=== PATIENT | female | born 1950 | race Hispanic/Latino ===

== ENCOUNTER 2022-11-19 12:06 | Inpatient (IN) | payer OTHER, SELFPAY ==
--- OUTSIDE RECORDS SUMMARY | 2022-11-19 12:09 | XMS REPORT | Continuity of Care Document ---
:1950 Author Organization [facility] t Address [address] [place] [address] [place] [address] Care Team Providers Name Role Phone PCP, PATIENT DOES NOT HAVE A Primary Care Physician UnavailCAROL Ackerman Attending Clinician Unavailable TAVIA METZGER Attending Clinician Unavailable DEL OCONNOR Attending Clinician Unavailable LAB90 Attending Clinician Unavailable RADHA SANDOVAL Attending Clinician Unavailable Radha Sandoval MD Attending Clinician RADHA SANDOVAL Admitting Clinician Unavailable Payers Payer Name Policy Type Policy Number Effective Date Expiration Date [facility] [id number] 2022 00:00:00 MEDICARE PART A [id number] 2018 \T\ B 00:00:00 Problems Condition Condition Condition Status Onset Resolution Last Treating Co mments Source Name Details Category Date Date Treatment Clinician Date Morbid Morbid Disease Active Annabel obesity obesity 818 Seybold 00:00: - 00 Externa l Mild major Mild major Disease Active K grzegorz depression depression 818 Se ybold 00:00: - 00 Externa l Peripheral Peripheral Disease Active K grzegorz vascular vascular 818 Seybol d disease of disease of 00:00: - extremity extremity 00 Exte rna l URIAH URIAH Disease Active Annabel (generaliz (generaliz 8-18 Se ybold ed anxiety ed anxiety 00:00: - disorder) disorder) 00 Exte rna - Not - Not l Controlled Controlled Hypothyroi Hypothyroi Disease Active Juan lantigua dism dism 11-07 Seybold 00:00: - 00 Externa l Hyperlipid Hyperlipid Disease Active Juan lantigua emia emia 11-07 Seybold 00:00: - 00 Externa l Primary Primary Disease Active Annabel hypertensi hypertensi 11-07 Se ybold on - Not on - Not 00:00: - Controlled Controlled 00 Ex terna l Allergies, Adverse Reactions, Alerts Allergy Allergy Status Severity Reaction(s) Onset Inactive Treating Comm ents Source Name Type Date Date Clinician NO KNOWN Drug [facility] Social History Social Habit Start Date Stop Date Quantity Comments Source Gender identity Annabel ybold - External Sexual orientation Annabel Rosalesjudyold - External Tobacco use and 2022-11-07 2022-11-07 Smokeless Annabel Se ybold - exposure 00:00:00 00:00:00 tobacco non-user External Alcohol intake 2022-11-07 2022-11-07 Ex-drinker Annabelalina Billings bold - 00:00:00 00:00:00 (finding) External History of Social 2022-11-07 2022-11-07 Annabelalina Ellisold - function 00:00:00 00:00:00 External Exposure to 2022-06-08 2022-06-18 Not sure University SARS-CoV-2 (event) 00:00:00 19:19:00 [facility] Sex Assigned At [birth year] Annabel Rosales ybold - 00:00:00 00:00:00 External Smoking Status Start Date Stop Date Source Tobacco smoking consumption Univ [facility] Never smoked tobacco Annabel Caleb old - External Medications Ordered Filled Start Stop Current Ordering Indication Dosage Frequency Signature Comments Components Source Medication Medication Date Date Medication? Clinician (SIG) Name Name Atorvastati 2022- No 40mg Take 1 Silver sey n Calcium 11-07 tablet (40 Sey bold 40 MG oral 09:13: 00:00 mg total) - Tablet 55 :00 by mouth Externa daily l Amlodipine 2022- No 10mg Take 1 Julia ey Besylate 10 11-07 tablet (10 S eybold MG oral 09:13: 00:00 mg total) - Tablet 55 :00 by mouth Externa daily l LISINOPRIL- 2022-0 3- No 1{tbl} Take 1 K elsey HCTZ 8-18 08-18 tablet by Seybold 20-12.5 MG 09:13: 00:00 mouth - oral Tablet 55 :00 daily Externa l Amlodipine 2022-0 Yes [id number] 10mg Take 1 K elsey Besylate 10 8-18 tablet (10 Se ybold MG oral 00:00: mg total) - Tablet 00 by mouth Externa daily l Atorvastati 2022-0 Yes [id number] 40mg Take 1 Annabel n Calcium 8-18 tablet (40 Seyb old 40 MG oral 00:00: mg total) - Tablet 00 by mouth Externa daily l Levothyroxi 2022-0 Yes [id number] 88ug Take 1 Annabel ne Sodium 8-18 tablet (88 Seyb old 88 MCG oral 00:00: mcg total) - Tablet 00 by mouth Externa daily l LISINOPRIL- 2022-0 Yes [id number] 1{tbl} Take 1 Annabel HCTZ 8-18 tablet by Seybold 20-12.5 MG 00:00: mouth - oral Tablet 00 daily Externa l Sertraline 2022-0 Yes [id number] 25mg Take 1 K elsey HCl 25 MG 8-18 tablet (25 Seyb old oral Tablet 00:00: mg total) - 00 by mouth Externa daily l Celecoxib 2022-0 Yes [id number] 200mg Take 1 Annabel (CeleBREX) 8-18 capsule Seybol d 200 MG oral 00:00: (200 mg - Capsule 00 total) by Externa mouth 2 l times daily hydrOXYzine 2022-0 Yes [id number] Ke lsey HCl 50 MG 7-29 Seybold oral Tablet 00:00: - 00 Externa l Levothyroxi 2022-0 2022- No Kelse y ne Sodium 7-25 08-18 Seybold 88 MCG oral 00:00: 00:00 - Tablet 00 :00 Externa l HYDROcodone 2022-0 2022- No 1{tbl} 1 tablet, Univers -acetaminop 3-30 03-30 Oral, ONCE i ty of hen (NORCO) 01:45: 01:18 NOW, 1 [place] as 10-325 mg 00 :00 dose, On Medica l tablet 1 Wed Branch tablet 06/18/22 at 2044, Routine acetaminoph Yes [id number] 1{tbl} Take 1 Un mickey en-codeine 3-29 tablet by ity of (TYLENOL-CO 00:00: mouth [place] DEINE #3) 00 every 4 Medical 300-30 mg (four) Branch tablet hours as needed for Pain (scale 7-10). Indication s: acute pain Acetaminoph 2022- No 1{tbl} Q4H Take 1 K elsey en-Codeine 3-29 - tablet by Alina bold 300-30 MG 00:00: 00:00 mouth - oral Tablet 00 :00 every 4 Exter na hours as l needed Vital Signs Vital Name Observation Time Observation Value Comments Source Systolic blood 2022-11-07 13:41:00 180 mm[Hg] Annabel Ellisold - pressure External Diastolic blood 2022-11-07 13:41:00 80 mm[Hg] Rasheeda Hernandez - pressure External Heart rate 2022-11-07 13:41:00 61 /min Annabel shannonboamrik - External Body temperature 2022-11-07 13:41:00 36.61 Idalia Julia Ellisold - External Respiratory rate 2022-11-07 13:41:00 15 /min Julia Ellisold - External Body height 2022-11-07 13:41:00 154.9 cm Annabel shannonboamrik - External Body weight 2022-11-07 13:41:00 93.441 kg Annabel price - External BMI 2022-11-07 13:41:00 38.92 kg/m2 Annabel shannonboamrik - External Oxygen saturation in 2022-11-07 13:41:00 99 /min Annabel Hernandez - Arterial blood by External Pulse oximetry Systolic blood 2022-06-19 00:22:00 147 mm[Hg] [facility] Diastolic blood 2022-06-19 00:22:00 84 mm[Hg] [facility] Heart rate 2022-06-19 00:22:00 71 /min [facility] Body temperature 2022-06-19 00:22:00 37.22 Idalia [facility] Respiratory rate 2022-06-19 00:22:00 16 /min [facility] Body height 2022-06-19 00:22:00 154.9 cm [facility] Body weight 2022-06-19 00:22:00 81.647 kg [facility] BMI 2022-06-19 00:22:00 34.01 kg/m2 [facility] Oxygen saturation in 2022-06-19 00:22:00 99 /min [facility] Arterial blood by [facility] Pulse oximetry Branch Procedures Procedure Date / Time Performed Performing Clinician Geri MONSON 2022-11-07 15:09:29 Tavia Metzger ld - External XR FEMUR 2 VW RIGHT 2022-06-19 01:09:00 Radha Sandoval [facility] XR KNEE 3 VW RIGHT 2022-06-19 01:09:00 Radha Sandoval [facility] CONSENT/REFUSAL FOR 2022-06-19 00:14:20 Doctor Unassigned, No [facility] DIAGNOSIS AND Name [facility] TREATMENT NOTICE OF PRIVACY 2022-06-19 00:13:40 Doctor Unassigned, No [facility] PRACTICES Name [facility] Encounters Start End Encounter Admission Attending Care Care Encounter Source Date/Time Date/Time Type Type Clinicians Facility Department ID 2022-12-12 2022-12-12 Outpatient ANNABEL ALCANTAR [id number] Annabel 10:00:00 10:00:00 CAROL izaguirre 2022-12-05 2022-12-05 Outpatient ANNABEL METZGER [id number] Annabel 13:30:00 13:30:00 TAVIA brock 2022-11-19 2022-11-19 Outpatient ANNABEL OCONNOR [id number] Annabel 00:00:00 00:00:00 DEL brock 2022-11-17 2022-11-17 Outpatient ANNABEL OCONNOR [id number] Annabel 00:00:00 00:00:00 DEL Ellisol delmy 2022-11-11 2022-11-11 Outpatient ANNABEL METZGER [id number] Annabel 00:00:00 00:00:00 TAVIA Seybol d 2022-11-07 2022-11-07 Outpatient LAB90 ANNABEL VERAS [id number] Annabel 10:20:00 10:20:00 Seybol d 2022-11-07 2022-11-07 Outpatient ANNABEL METZGER [id number] Annabel 09:00:00 09:00:00 TAVIA Seybol d 2022-11-07 2022-11-07 Outpatient ANNABEL VERAS [id number] Annabel 00:00:00 00:00:00 Seybol d 2022-06-18 2022-06-18 Emergency X [facility] ERT [id number] Univers 19:32:00 21:29:00 RADHA [facility] 2022-06-18 2022-06-18 Emergency [facility] [id number] Univers 19:32:00 21:29:00 [id number] [id number] [place] [address] Branch 2022-04-17 2022-04-17 Outpatient [facility] 126 Hogn 10:45:48 10:45:48 F Que Results Test Description Test Time Test Comments Results Result Comments Source [facility] 2022-11-07 15:10:00 Test Item Value Reference Range Interpretation Comme [facility] side (test See_Comment L [ Automated message] The system code = 79618-7N) which gener ated this result transmitted ref erence range: 1.40 - 0.90 NA. The reference range was not used to int erpret this result as normal/abnor mal. [facility] right side (test See_Comment P resentation Factors: code = 62907-0O) Hypertensio nExercise Modality: At RestNormal - 1. 40 - 1.00Borderline - 0.99 - 0.90Mi ld - 0.89 - 0.60Moderate - 0.59 - 0.30Severe - 0.29 - 0.00 [Au tomated message] The system Line[employer] generated this result transmit ashlie reference range: 1.40 - 0 .90 NA. The reference range was not used to interpret this result as normal/abnormal . Lab Interpretation (test Abnormal code = 65772-4) Annabel Reed, THIRD [id number] 06:50:54 Test Item Value Reference Range Interpretation Comments TSH, THIRD 2.910 UIU/ML 0.400-4.100 UNLESS OTHERWI SE GENERATION (test INDICATED, ALL TESTING code = 2821) PERFORMED [facility], [place]. [address] [place] [address] [facility] DIRECTOR: TIFFANIE TIAN M.D. IA NUMBER [id number] CAP ACCREDITATION N O. [id number] COMPREHENSIVE METABOLIC [id number] 05:26:21 Test Item Value Reference Range Interpretation Comments GLUCOSE (test code = 90 MG/DL 70-99 2216) BUN (test code = 7 MG/DL 8-23 L 2207) CREATININE (test 0.75 MG/DL 0.60-1.30 code = 2214) eGFR (2020 CKD-EPI) 86 ML/MIN/1.73 >60 (test code = 59854) CALC BUN/CREAT (test 9 RATIO 6-28 code = 2235) SODIUM (test code = 144 MEQ/L 868-441 6488) POTASSIUM (test code 3.9 MEQ/L 3.5-5.4 = 222) CHLORIDE (test code 105 MEQ/L 95-107 = 221) CARBON DIOXIDE (test 28 MEQ/L 19-31 code = 2206) CALCIUM (test code = 9.4 MG/DL 8.5-10.5 2208) PROTEIN, TOTAL (test 7.3 G/DL 6.1-8.3 code = 2229) ALBUMIN (test code = 4.3 G/DL 3.5-5.2 2200) CALC GLOBULIN (test 3.0 G/DL 1.9-3.7 code = 2240) CALC A/G RATIO (test 1.4 RATIO 1.0-2.6 code = 2234) BILIRUBIN, TOTAL 0.3 MG/DL See_Comment [Automated message] (test code = 2207) The [employer] which generated this result transmit ashlie reference range : <=1.2. The refe rence range was not u sed to interpret th is result as normal/abnormal . ALKALINE PHOSPHATASE 54 U/L 40-142 (test code = 2203) AST (test code = 21 U/L 9-40 2217) ALT (test code = 15 U/L 5-40 2218) LIPID [id number] 05:26:21 Test Item Value Reference Range Interpretation Comments CHOLESTEROL (test 163 MG/DL <200 code = 2210) TRIGLYCERIDES (test 93 MG/DL <150 code = 2232) HDL CHOLESTEROL (test 63 MG/DL >39 code = 2220) CALC LDL CHOL (test 81 MG/DL <100 NOTE: C ALCULATED LDL code = 2237) IS BASED ON URBAN-LIU METHOD WHICHINCLUDES ADJUSTABLE TRIGLYCERIDE:VL DL CHOLESTEROL RAT IO.THIS FACTOR VARIES B Y MEASURED TRIGLY CERIDE AND NON-HDLCHOL ESTEROL CONCENTRATIONS WITH INCREASED CALCU LATED LDL SEENIN HIGH ER TRIGLYCERIDE OR LOWER NON-HDL SPECIME NS. FOR MOREINFORMATION , SEE CLIENT ANNOUNCE MENT AT [email or web address] LDL/HDL 1.29 RATIO <3.22 (test code = 2237) TSH, THIRD [id number] 09:08:47 Test Item Value Reference Range Interpretation Comments TSH, THIRD GENERATION (test code 2.340 UIU/ML 0.400-4.100 = 2820) COMPREHENSIVE METABOLIC [id number] 04:24:39 Test Item Value Reference Range Interpretation Comments GLUCOSE (test code = 92 MG/DL 70-99 2216) BUN (test code = 16 MG/DL -2207) CREATININE (test 0.79 MG/DL 0.60-1.30 code = 2214) eGFR (2020 CKD-EPI) 81 ML/MIN/1.73 >60 (test code = 70251) CALC BUN/CREAT (test 20 RATIO 6-28 code = 2235) SODIUM (test code = 142 MEQ/L 716-098 0385) POTASSIUM (test code 3.9 MEQ/L 3.5-5.4 = 2227) CHLORIDE (test code 103 MEQ/L 95-107 = 2214) CARBON DIOXIDE (test 27 MEQ/L 19-31 code = 2206) CALCIUM (test code = 9.9 MG/DL 8.5-10.5 2208) PROTEIN, TOTAL (test 7.8 G/DL 6.1-8.3 code = 2229) ALBUMIN (test code = 4.6 G/DL 3.5-5.2 2200) CALC GLOBULIN (test 3.2 G/DL 1.9-3.7 code = 2240) CALC A/G RATIO (test 1.4 RATIO 1.0-2.6 code = 2234) BILIRUBIN, TOTAL 0.5 MG/DL See_Comment [Automated message] (test code = 220) The syste m which generated this result transmit ashlie reference range : <=1.2. The refe rence range was not u sed to interpret th is result as normal/abnormal . ALKALINE PHOSPHATASE 51 U/L 40-142 (test code = 2203) AST (test code = 20 U/L 9-40 2217) ALT (test code = 16 U/L 5-40 2218) LIPID [id number] 04:24:39 Test Item Value Reference Range Interpretation Comments CHOLESTEROL (test 155 MG/DL <200 code = 2210) TRIGLYCERIDES (test 68 MG/DL <150 code = 2232) HDL CHOLESTEROL (test 82 MG/DL >39 code = 2220) CALC LDL CHOL (test 59 MG/DL <100 NOTE: C ALCULATED LDL code = 2237) IS BASED ON URBAN-LIU METHOD WHICHINCLUDES ADJUSTABLE TRIGLYCERIDE:VL DL CHOLESTEROL RAT IO.THIS FACTOR VARIES B Y MEASURED TRIGLY CERIDE AND NON-HDLCHOL ESTEROL CONCENTRATIONS WITH INCREASED CALCU LATED LDL SEENIN HIGH ER TRIGLYCERIDE OR LOWER NON-HDL SPECIME NS. FOR MOREINFORMATION , SEE CLIENT ANNOUNCE MENT AT [email or web address] LDL/HDL 0.72 RATIO <3.22 UNLESS O THERWISE (test code = 223) INDICATED , ALL TESTING PERFORMED [facility], [facility]. [address] [place] [address] [facility] DIRECTOR: TIFFANIE TIAN M.D. CLIA NUMBER [id number] CAP ACCREDITATION N O. [id number] TSH, THIRD [id number] 05:58:25 Test Item Value Reference Range Interpretation Comments TSH, THIRD 2.410 UIU/ML 0.400-4.100 UNLESS OTHERWI SE GENERATION (test INDICATED, ALL TESTING code = 2821) PERFORMED [facility], [facility]. [address] [place] [id number] [facility] DIRECTOR: TIFFANIE TIAN M.D. CLIA NUMBER [id number] CAP ACCREDITATION N O. [id number]
[2022-11-19 12:38] LABS: Absolute Lymphocytes (CBC) 1.3 K/uL (0.7-4.9); Hematocrit 42.9 % (36.0-45.0); Lymphocytes % 13.2 % (15.3-44.8); MCV 82.6 fL (80-100); MPV 8.5 fL (7.6-11.3); Platelets 340 thou/uL (152-406); RBC Red Blood Cell Count 5.19 M/uL (3.86-4.86)
--- NOTE | 2022-11-19 12:47 | RAD REPORT ---
EXAM DESCRIPTION: López Single View11/19/2022 12:40 pm CLINICAL HISTORY: Chest pain COMPARISON: none FINDINGS: The lungs appear clear of acute infiltrate. The heart is normal size IMPRESSION: No acute abnormalities displayed
[2022-11-19 13:03] LABS: Magnesium 2.1 mg/dL (1.6-2.4); Potassium 2.8 mEq/L (3.5-5.1); Troponin High Sensitivity 5.7 pg/mL (<58.9)
[2022-11-19 14:00] LABS: Potassium 2.8 mEq/L (3.5-5.1)
[2022-11-19] MEDS ORDERED: POTASSIUM CL SA 10 MEQ TAB PO ONE (14:24)
--- NOTE | 2022-11-19 14:33 | EDPHYS ---
Physician Documentation [facility] Name: Deya Thomas Age: 72 yrs Sex: Female : 1950 Arrival Date: 11/19/2022 Time: 12:06 Bed 15 Private MD: ED Physician King Cordova HPI: 11/19 12:32 This 72 yrs old Female presents to ER via Ambulatory with complaints of Chest ms3 Pain. 12:32 72-year-old female with past medical history of hypertension, hypothyroidism, ms3 hypercholesterolemia presents for chest pressure that is been ongoing for 4 days located in her epigastric region. Patient denies nausea, vomiting, dizziness. Patient states her discomfort is an 8/10. Patient denies alleviating or inciting factors. Historical: - Allergies: 12:18 No Known Allergies; ap3 - Home Meds: 12:18 levothyroxine oral [Active]; Celecoxib Oral [Active]; amlodipine oral [Active]; ap3 Lisinopril Oral [Active]; - PMHx: 12:18 Hypertensive disorder; Hypothyroidism; Hypercholesterolemia; ap3 - PSHx: 12:18 section; ap3 - Immunization history:: Adult Immunizations up to date. - Social history:: Smoking status: Patient denies any tobacco usage or history of. ROS: 12:32 Constitutional: Negative for fever, and chills. Neck: Negative for injury, pain, and ms3 swelling, Respiratory: Negative for shortness of breath, cough, wheezing, and pleuritic chest pain, Abdomen/GI: Negative for abdominal pain, nausea, vomiting, diarrhea, and constipation, Back: Negative for injury and pain. 12:32 Cardiovascular: Positive for chest pain. Exam: 12:32 Constitutional: This is a well developed, well nourished patient who is awake, alert, ms3 and in no acute distress. Head/Face: Normocephalic, atraumatic. Neck: Trachea midline, no cervical lymphadenopathy. Supple, full range of motion without nuchal rigidity, or vertebral point tenderness. No Meningismus. Chest/axilla: Normal chest wall appearance and motion. Nontender with no deformity. Cardiovascular: Regular rate and rhythm with a normal S1 and S2. No gallops, murmurs, or rubs. Normal PMI, no JVD. No pulse deficits. Respiratory: Lungs have equal breath sounds bilaterally, clear to auscultation and percussion. No rales, rhonchi or wheezes noted. No increased work of breathing, no retractions or nasal flaring. Abdomen/GI: Soft, non-tender, with normal bowel sounds. No distension or tympany. No guarding or rebound. No evidence of tenderness throughout. Skin: Warm, dry with normal turgor. Normal color with no rashes, no lesions, and no evidence of cellulitis. MS/ Extremity: Pulses equal, no cyanosis. Neurovascular intact. Full, normal range of motion. 15:08 ECG was reviewed by the Attending Physician. ms3 Vital Signs: 12:16 BP 135 / 72; Pulse 81; Resp 17; Temp 98.8; Pulse Ox 99% ; Weight 92.53 kg; Pain 8/10; ap3 13:53 BP 125 / 54; Pulse 64; Pulse Ox 99% ; ll1 15:13 BP 145 / 73; Pulse 72; Resp 17; Pulse Ox 99% ; ll1 17:20 BP 141 / 71; Pulse 70; Resp 17; Pulse Ox 99% on R/A; ll1 17:59 BP 122 / 63; Pulse 68; Resp 17; Pulse Ox 99% ; ll1 19:55 BP 118 / 57; Pulse 66; Resp 17; Temp 98; Pulse Ox 100% ; rv 12:16 Pain Scale: Adult ap3 [place] Coma Score: 19:55 Eye Response: spontaneous(4). Motor Response: obeys commands(6). Verbal Response: rv oriented(5). Total: 15. MDM: 12:24 Patient medically screened. ms3 12:32 Differential diagnosis: abnormal EKG, acute myocardial infarction, coronary artery ms3 disease. 14:46 HEART Score: History: Moderately Suspicious (1), ECG: Normal (0), Age: > or = 65 years ms3 (2), Risk Factors: 1 or 2 risk factors (1), Troponin: < or = 1 x Normal Limit (0), Total Score = 4. The patient was given aspirin in the Emergency Department. Data reviewed: vital signs, nurses notes, lab test result(s), EKG, radiologic studies, and as a result, I will admit patient. Consideration of Admission/Observation Patient was admitted/placed on observation. Management of patient was discussed with the following: Hospitalist: . 14:49 Independent interpretation of the following test(s) in the Emergency Department X-Ray: ms3 My interpretation is CXR image reviewed by me does not show PNA. Care significantly affected by the following chronic conditions: Hypertension, HLD. Counseling: I had a detailed discussion with the patient and/or guardian regarding the historical points, exam findings, and any diagnostic results supporting the discharge/admit diagnosis, lab results, radiology results, the need for outpatient follow up, to return to the emergency department if symptoms worsen or persist or if there are any questions or concerns that arise at home. ED course: Discussed low sodium, low potassium, normal troponin normal EKG normal chest x-ray with patient. Discussed necessity for admission with hyponatremia of 119. Patient understands agrees with plan. All questions were answered.. 11/19 12:24 Order name: Basic Metabolic Panel; Complete Time: 13:11 ms3 11/19 12:24 Order name: CBC with Diff; Complete Time: 13:11 ms3 11/19 12:24 Order name: Magnesium; Complete Time: 13:11 ms3 11/19 12:24 Order name: Troponin HS; Complete Time: 13:11 ms3 11/19 13:05 Order name: BMP; Complete Time: 14:30 ms3 11/19 14:02 Order name: Urine Sodium Random; Complete Time: 16:20 kb 11/19 14:02 Order name: Osmolality, Serum; Complete Time: 16:20 kb 11/19 12:24 Order name: XRAY Chest (1 view); Complete Time: 13:11 ms3 11/19 12:24 Order name: EKG; Complete Time: 12:25 ms3 11/19 12:24 Order name: Cardiac monitoring; Complete Time: 12:25 ms3 11/19 12:24 Order name: EKG - Nurse/Tech; Complete Time: 12:25 ms3 11/19 12:24 Order name: IV Saline Lock; Complete Time: 13:28 ms3 11/19 12:24 Order name: Labs collected and sent; Complete Time: 12:25 ms3 11/19 12:24 Order name: O2 Per Protocol; Complete Time: 12:25 ms3 11/19 12:24 Order name: O2 Sat Monitoring; Complete Time: 12:25 ms3 EC:08 Rate is 71 beats/min. Rhythm is regular. QRS [place] is Normal. MD interval is normal. QRS ms3 interval is normal. QT interval is normal. Clinical impression: Normal ECG. Interpreted by me. Reviewed by me. Administered Medications: 14:16 Drug: Potassium PO Effervescent Tablet 50 mEq Route: PO; ll1 15:08 Follow up: Response: No adverse reaction ll1 Disposition Summary: 11/19/22 14:32 Hospitalization Ordered Hospitalization Status: Inpatient Admission ms3 Provider: Garry Ridley ms3 Location: Telemetry/MedSur (Inpatient) ms3 Condition: Stable ms3 Problem: new ms3 Symptoms: are unchanged ms3 Bed/Room Type: Standard ms3 Room Assignment: 409(11/19/22 19:02) cg Diagnosis - Chest pain, unspecified ms3 - Hypo-osmolality and hyponatremia ms3 - Hypokalemia ms3 Forms: - Medication Reconciliation Form ms3 - SBAR form ms3 - Leadership Thank You Letter ms3 Signatures: Dispatcher [employer] EDLeela Vargas, HAND STRAIGHTENER-C HAND STRAIGHTENER-Maggi Soto RN RN cg Nunu Dupree RN RN ap3 Gene Butts RN RN ll1 King Cordova DO DO ms3 Corrections: (The following items were deleted from the chart) 19:02 14:32 ms3 cg
--- NOTE | 2022-11-19 14:33 | ER ---
Nurse's Notes [facility] Name: Deya Thomas Age: 72 yrs Sex: Female : 1950 Arrival Date: 11/19/2022 Time: 12:06 Bed 15 Private MD: Diagnosis: Chest pain, unspecified;Hypo-osmolality and hyponatremia;Hypokalemia Presentation: 11/19 12:16 Chief complaint: Patient states: she has been having epigastric pain for approx 4 days. ap3 patient denies nausea, vomiting or SOB. Coronavirus screen: At this time, the client does not indicate any symptoms associated with coronavirus-19. Ebola Screen: No symptoms or risks identified at this time. Initial Sepsis Screen: Does the patient meet any 2 criteria? No. Patient's initial sepsis screen is negative. Does the patient have a suspected source of infection? No. Patient's initial sepsis screen is negative. Risk Assessment: Do you want to hurt yourself or someone else? Patient reports no desire to harm self or others. Onset of symptoms was November 15, 2022. 12:16 Method Of Arrival: Ambulatory ap3 12:16 Acuity: SKYLER 3 ap3 Triage Assessment: 12:20 General: Appears in no apparent distress. Behavior is calm, cooperative, appropriate ap3 for age. Pain: Complains of pain in epigastric area Pain currently is 8 out of 10 on a pain scale. Neuro: Level of Consciousness is awake, alert, obeys commands, Oriented to person, place, time, situation. Cardiovascular: Patient's skin is warm and dry. Respiratory: Airway is patent Respiratory effort is even, unlabored, Respiratory pattern is regular, symmetrical. Historical: - Allergies: 12:18 No Known Allergies; ap3 - Home Meds: 12:18 levothyroxine oral [Active]; Celecoxib Oral [Active]; amlodipine oral [Active]; ap3 Lisinopril Oral [Active]; - PMHx: 12:18 Hypertensive disorder; Hypothyroidism; Hypercholesterolemia; ap3 - PSHx: 12:18 section; ap3 - Immunization history:: Adult Immunizations up to date. - Social history:: Smoking status: Patient denies any tobacco usage or history of. Screenin:21 [facility] ED Fall Risk Assessment (Adult) History of falling in the last 3 months, ap3 including since admission No falls in past 3 months (0 pts). Abuse screen: Denies threats or abuse. Nutritional screening: No deficits noted. Tuberculosis screening: No symptoms or risk factors identified. Assessment: 12:21 Pain: Pain does not radiate. ap3 12:22 Pain: Pain began gradually, 4 days ago. ap3 13:22 Reassessment: No changes from previously documented assessment. Patient and/or family ll1 updated on plan of care and expected duration. Pain level reassessed. Patient is alert, oriented x 3, equal unlabored respirations, skin warm/dry/pink. 13:52 Reassessment: No changes from previously documented assessment. gait steady to restroom.ll1 14:16 Reassessment: No changes from previously documented assessment. Patient and/or family ll1 updated on plan of care and expected duration. Pain level reassessed. Patient is alert, oriented x 3, equal unlabored respirations, skin warm/dry/pink. 15:14 Reassessment: No changes from previously documented assessment. Patient and/or family ll1 updated on plan of care and expected duration. Pain level reassessed. Patient is alert, oriented x 3, equal unlabored respirations, skin warm/dry/pink. 17:21 Reassessment: No changes from previously documented assessment. Patient and/or family ll1 updated on plan of care and expected duration. Pain level reassessed. Patient is alert, oriented x 3, equal unlabored respirations, skin warm/dry/pink. 17:58 Reassessment: No changes from previously documented assessment. Patient and/or family ll1 updated on plan of care and expected duration. Pain level reassessed. Patient is alert, oriented x 3, equal unlabored respirations, skin warm/dry/pink. will get a room after shift change. Verbalized understanding. Vital Signs: 12:16 BP 135 / 72; Pulse 81; Resp 17; Temp 98.8; Pulse Ox 99% ; Weight 92.53 kg; Pain 8/10; ap3 13:53 BP 125 / 54; Pulse 64; Pulse Ox 99% ; ll1 15:13 BP 145 / 73; Pulse 72; Resp 17; Pulse Ox 99% ; ll1 17:20 BP 141 / 71; Pulse 70; Resp 17; Pulse Ox 99% on R/A; ll1 17:59 BP 122 / 63; Pulse 68; Resp 17; Pulse Ox 99% ; ll1 19:55 BP 118 / 57; Pulse 66; Resp 17; Temp 98; Pulse Ox 100% ; rv 12:16 Pain Scale: Adult ap3 Nano Coma Score: 19:55 Eye Response: spontaneous(4). Motor Response: obeys commands(6). Verbal Response: rv oriented(5). Total: 15. ED Course: 12:08 Patient arrived in ED. rg4 12:09 Gene Butts RN is Primary Nurse. ll1 12:10 King Cordova DO is Attending Physician. ms3 12:16 Arm band placed on Patient placed in an exam room, on a stretcher. ll1 12:18 Triage completed. ap3 12:21 Patient has correct armband on for positive identification. Bed in low position. Call ap3 light in reach. Side rails up X 1. 12:21 Patient maintains SpO2 saturation greater than 95% on room air. ap3 12:25 Initial lab(s) drawn, by me, sent to lab. Missed attempt(s): 20 gauge in right ll1 antecubital area. Bleeding controlled, band aid applied, catheter tip intact. 12:26 Client placed on continuous cardiac and pulse oximetry monitoring. NIBP monitoring ll1 applied. ent consultant on. 12:42 XRAY Chest (1 view) In Process Unspecified. EDMS 13:28 BMP Sent. bc6 13:29 Inserted saline lock: 22 gauge in left antecubital area, using aseptic technique. Blood bc6 collected. 14:32 Garry Ridley MD is Hospitalizing Provider. ms3 19:56 No provider procedures requiring assistance completed. Patient admitted, IV remains in rv place. 19:57 Provided Education on: HYPONATREMIA. rv Administered Medications: 14:16 Drug: Potassium PO Effervescent Tablet 50 mEq Route: PO; ll1 15:08 Follow up: Response: No adverse reaction ll1 Medication: 12:22 VIS not applicable for this client. ap3 Outcome: 14:32 Decision to Hospitalize by Provider. ms3 19:56 Admitted to Tele accompanied by nurse, via wheelchair, room 409, with chart, Report rv called to TERE PERSAUD 19:56 Condition: stable 19:56 Instructed on the need for admit. 19:57 Patient left the ED. rv Signatures: Dispatcher [employer] EDMS Zara Connolly rg4 Nunu Dupree, RN RN ap3 Branden Hernández, RN RN rv Gene Butts RN RN ll1 King Cordova, DO ARIZA ms3 Porsha Kothari bc6
[2022-11-19] MEDS ORDERED: TRAMADOL HCL 50 MG TAB PO PRN (16:30)
[2022-11-19] MEDS ORDERED: ACETAMINOPHEN 325 MG TABLET PO PRN (16:30)
[2022-11-19] MEDS ORDERED: ONDANSETRON 4 MG/2 ML VIAL IV PRN (16:32)
--- NOTE | 2022-11-19 16:44 | P.HP ---
Certification for Inpatient Patient admitted to: Observation With expected LOS: <2 Midnights Patient will require the following post-hospital care: None Practitioner: I am a practitioner with admitting privileges, knowledge of patient current condition, hospital course, and medical plan of care. Services: Services provided to patient in accordance with Admission requirements found in Title 42 Section 412.3 of the Code of Federal Regulations Patient History Date of Service: 11/19/22 Reason for admission: Chest pain History of Present Illness: Patient is a 72-year-old female with a past medical history significant for hypothyroidism, hypertension, hyperlipidemia who presents with complaint of chest pain located in the substernal chest which has been ongoing for the past 4 days. Patient reported that chest pain radiates to her back and shoulders. Patient rated pain as 8/10 in severity and described pain as dull in quality. Patient reported associated signs and symptoms of diaphoresis, chills and loss of appetite. Patient denies any other signs or symptoms. Symptoms are aggravated or relieved by nothing. Patient decided to present to the hospital due to worsening symptoms. Allergies No Known Allergies Allergy (Unverified 11/19/22 20:19) Home Medications: Amlodipine Besylate [Norvasc] 1 tab PO DAILY 11/20/22 Celecoxib [Celebrex] 1 cap PO BID 11/20/22 Levothyroxine [Synthroid*] 1 tab PO DAILY 11/20/22 lisinopriL [Prinivil*] 1 tab PO DAILY 11/20/22 - Past Medical/Surgical History -: HTN -: HLD -: - Family History Family History: Reviewed- Non-Contributory - Social History Smoking Status: Never smoker Alcohol use: No CD- Drugs: No Caffeine use: Yes Place of Residence: Home Review of Systems General: Chills, Sweats, Other (Loss of appetite ) Eyes: Unremarkable ENT: Unremarkable Respiratory: Unremarkable Cardiovascular: Chest Pain Gastrointestinal: Unremarkable Genitourinary: Unremarkable Musculoskeletal: Shoulder Pain, Back Pain Integumentary: Unremarkable Neurological: Unremarkable Lymphatics: Unremarkable Physical Examination - Physical Exam General: Alert, In no apparent distress, Oriented x3 HEENT: Atraumatic, PERRLA, Mucous membr. moist/pink, EOMI, Sclerae nonicteric Neck: Supple, 2+ carotid pulse no bruit, No LAD, Without JVD or thyroid abnormality Respiratory: Clear to auscultation bilaterally, Normal air movement Cardiovascular: No edema, Regular rate/rhythm, Normal S1 S2 Capillary refill: <2 Seconds Gastrointestinal: Normal bowel sounds, Soft and benign, No tenderness Musculoskeletal: No clubbing, No tenderness Integumentary: No rashes, No significant lesion Neurological: Normal gait, Normal speech, Normal strength at 5/5 x4 extr, Normal tone, Normal affect Lymphatics: No axilla or inguinal lymphadenopathy - Studies Laboratory Data (last 24 hrs) 11/19/22 11/19/22 11/19/22 13:25 12:25 12:25 WBC 9.90 Hgb 15.1 H Hct 42.9 Plt Count 340 Sodium 119 L* 116 L* Potassium 2.8 L 2.8 L BUN 11 10 Creatinine 0.77 0.88 Glucose 120 H 124 H Magnesium 2.1 Assessment and Plan - Plan --Chest pain. To rule out ACS. Serial troponins negative so far. [employer] Architect consulted. Echocardiogram pending to assess cardiac structures and functions. Telemetry to monitor for any significant arrhythmia. We will await further recommendation from caretaker grounds. --Hypothyroidism. Continue Synthroid. --Hypertension. Poorly controlled. We will manage BP with hydralazine as needed. --Hyponatremia. Nephrology consulted. We will await further recommendation. --Hypokalemia. Replete as needed. --Osteoarthritis. We will manage pain with current medication regimen. --CKD 2. Baseline functions unknown. We will continue to monitor renal functions. --DVT prophylaxis with Lovenox subQ. Discharge Plan: Home Plan to discharge in: 48 Hours - Advance Directives Does patient have a Living Will: No Does patient have a Durable POA for Healthcare: No - Code Status/Comfort Care Code Status Assessed: Yes Physician Review: Patient Assessed, Agree with Above Assessment and Plan Critical Care: No
[2022-11-19] MEDS: ENOXAPARIN 40 MG/0.4 ML SQ SCH (17:00)
[2022-11-19] MEDS: ASPIRIN 81 MG CHEWABLE TABLET PO SCH (17:00)
--- NOTE | 2022-11-19 17:51 | EKG ---
Test Date: 2022-11-19 Test Time: 12:28:52 Appraiser: GALILEA MEASUREMENT RESULTS: Intervals: Rate: 71 GA: 166 QRSD: 82 QT: 424 QTc: 460 Como: P: 72 GA: 166 QRS: -24 T: 51 INTERPRETIVE STATEMENTS: Normal sinus rhythm Normal ECG No previous ECG available for comparison Electronically Signed On 11-19-22 17:50:25 CDT by Victor Manuel Luna
[2022-11-19 21:52] LABS: Magnesium 2.4 mg/dL (1.6-2.4); Phosphorus 2.5 mg/dL (2.5-4.9); Troponin High Sensitivity 7.8 pg/mL (<58.9)
[2022-11-19 21:54] VITALS: BMI 38.9
[2022-11-19 21:54] LABS: Thyroid Stimulating Hormone 8.14 uIU/mL (0.358-3.740)
[2022-11-19] MEDS ORDERED: HYDRALAZINE HCL 20 MG/ML VIAL IV PRN (22:00)
[2022-11-20 02:24] LABS: Specific Gravity 1.005 (1.005-1.030); Urine Bacteria <20 /HPF (<20); Urine Bilirubin NEGATIVE (Negative); Urine Blood Negative (Negative); Urine Clarity Extremely Turbid (Clear); Urine Color Colorless (Yellow); Urine Glucose NEGATIVE (Negative); Urine Protein NEGATIVE (Negative); Urine RBC <5 /HPF (None Seen); Urine Urobilinogen Normal (Normal)
[2022-11-20 03:41] LABS: Potassium 3.4 mEq/L (3.5-5.1)
[2022-11-20 04:07] LABS: Absolute Lymphocytes (CBC) 2.4 K/uL (0.7-4.9); Hematocrit 40.3 % (36.0-45.0); Lymphocytes % 23.5 % (15.3-44.8); MCV 84.2 fL (80-100); MPV 8.8 fL (7.6-11.3); Platelets 329 thou/uL (152-406); RBC Red Blood Cell Count 4.78 M/uL (3.86-4.86)
[2022-11-20] MEDS ORDERED: POTASSIUM CL SA 10 MEQ TAB PO ONE ×2 (06:00→14:00)
[2022-11-20] MEDS: ENOXAPARIN 40 MG/0.4 ML SQ SCH (08:20)
[2022-11-20] MEDS: ASPIRIN 81 MG CHEWABLE TABLET PO SCH (08:20)
--- NOTE | 2022-11-20 10:25 | P.CNS ---
Date of Consult: 11/20/22 Reason for Consult: Hyponatremia Requesting Physician: Isra Mead Chief Complaint: Chest pain History of Present Illness: Patient is a 72-year-old female with a past medical history significant for hypothyroidism, hypertension, hyperlipidemia who presents with complaint of chest pain located in the substernal chest which has been ongoing for the past 4 days. Patient reported that chest pain radiates to her back and shoulders. Patient rated pain as 8/10 in severity and described pain as dull in quality. Patient reported associated signs and symptoms of diaphoresis, chills and loss of appetite. Patient denies any other signs or symptoms. Symptoms are aggravated or relieved by nothing. Patient decided to present to the hospital due to worsening symptoms. 12:32 This 72 yrs old Female presents to ER via Ambulatory with complaints of Chest ms3 Pain. 12:32 72-year-old female with past medical history of hypertension, hypothyroidism, ms3 hypercholesterolemia presents for chest pressure that is been ongoing for 4 days located in her epigastric region. Patient denies nausea, vomiting, dizziness. Patient states her discomfort is an 8/10. Patient denies alleviating or inciting factors. Daughter reports anorexia and nausea with associated chest pain since Thursday. She was treated for a UTI 2 weeks ago. No sick contacts. Allergies No Known Allergies Allergy (Unverified 11/19/22 20:19) Home medications list reviewed: Yes Home Medications: Amlodipine Besylate [Norvasc] 1 tab PO DAILY 11/20/22 Celecoxib [Celebrex] 1 cap PO BID 11/20/22 Hydroxyzine HCl [Atarax] 50 mg PO DAILY PRN 11/20/22 Levothyroxine [Synthroid*] 1 tab PO DAILY 11/20/22 Lisinopril/Hydrochlorothiazide [Lisinopril-Hctz 20-12.5 mg Tab] 1 tab PO DAILY 11/20/22 - Past Medical/Surgical History Diabetic: No -: HTN -: HLD -: hypothyroidism -: vitamin D deficiency -: Hx Hyponatremia (Dr. Ron/ Dr. Sandy) -: - Social History Alcohol use: No CD- Drugs: No Caffeine use: Yes Place of Residence: Home Review of Systems 10-point ROS is otherwise unremarkable Gastrointestinal: Nausea Physical Examination Temp Pulse Resp BP Pulse Ox 98.5 F 62 18 146/73 H 94 11/20/22 04:00 11/20/22 04:00 11/20/22 04:00 11/20/22 04:00 11/20/22 04:00 General: In no apparent distress, Oriented x3, Cooperative HEENT: Atraumatic Neck: Supple Respiratory: Clear to auscultation bilaterally, Normal air movement Cardiovascular: No edema, Regular rate/rhythm Gastrointestinal: Soft and benign, Non-distended Musculoskeletal: No clubbing, No contractures Integumentary: No rashes, No cyanosis Neurological: Normal speech Laboratory Data (last 24 hrs) 11/19/22 11/19/22 11/19/22 13:25 12:25 12:25 WBC 9.90 Hgb 15.1 H Hct 42.9 Plt Count 340 Sodium 119 L* 116 L* Potassium 2.8 L 2.8 L BUN 11 10 Creatinine 0.77 0.88 Glucose 120 H 124 H Magnesium 2.1 Imagings Data: EXAM DESCRIPTION: [facility] Single View11/19/2022 12:40 pm CLINICAL HISTORY: Chest pain COMPARISON: none FINDINGS: The lungs appear clear of acute infiltrate. The heart is normal size IMPRESSION: No acute abnormalities displayed [id number] LEFT VENTRICULAR WALL MOTION: NORMAL DOPPLER/COLOR FLOW: SEE BELOW COMMENTS: 1. NORMAL LEFT VENTRICULAR EJECTION FRACTION GREATER THAN 60% 2. NORMAL WALL MOTION 3. MILD TRICUSPID REGURGITATION 4. GRADE I DIASTOLIC DYSFUNCTION 5. MILD CONCENTRIC LEFT VENTRICULAR HYPERTROPHY Conclusions/Impression: Hyponatremia in the setting of HCTZ -Hold HCTZ -Encourage nutrition Hypokalemia in the setting of HCTZ -Hold HCTZ -Replete as ordered -Restart Lisinopril HTN with CHF -Restart Lisinopril Diastolic CHF, chronic -Daily weight Hypothyroidism -Recommend restarting levothyroxine Hospitalist and ER notes reviewed Thank you kindly for the consultation
[2022-11-20] MEDS: lisinopriL 10 MG TAB PO SCH (11:10)
--- NOTE | 2022-11-20 12:05 | P.PN ---
Subjective Date of Service: 11/20/22 Chief Complaint: Chest pain No acute events since admission. She reports that her chest pain has subsided. Her sodium is gradually up-trending. She denies any shortness of breath, palpitations, nausea, or vomiting. Review of Systems 10-point ROS is otherwise unremarkable Physical Examination - Vital Signs Temperature: 98.4 F Blood Pressure: 127/59 Pulse: 55 Respirations: 18 Pulse Ox (%): 98 - Physical Exam General: Alert, In no apparent distress, Oriented x3 HEENT: Atraumatic, Mucous membr. moist/pink, Sclerae nonicteric Neck: JVD not distended Respiratory: Clear to auscultation bilaterally, Normal air movement Cardiovascular: No edema, Regular rate/rhythm, Normal S1 S2, No gallops, No rubs, No murmurs Gastrointestinal: Normal bowel sounds, Soft and benign, Non-distended, No tenderness, No rebound, No guarding Musculoskeletal: No clubbing Integumentary: No rashes Neurological: Normal speech, Normal affect - Studies Laboratory Data (last 24 hrs) 11/19/22 11/19/22 11/19/22 13:25 12:25 12:25 WBC 9.90 Hgb 15.1 H Hct 42.9 Plt Count 340 Sodium 119 L* 116 L* Potassium 2.8 L 2.8 L BUN 11 10 Creatinine 0.77 0.88 Glucose 120 H 124 H Magnesium 2.1 Assessment And Plan - Plan # Likely Hypovolemic Hyponatremia secondary to Hydrochlorothiazide # Hypokalemia - improved - Consulted Nephrology and spoke with Dr. Ron - recommendations appreciated - Hold off on fluids at this time due to concern for overcorrecting sodium - Hold home hydrochlorothiazide - Serial BMPs # Chest Pain - non-exertional - Evaluation thus far: - EKG: without STEMI criteria, trend - Serial troponin: 5.7 -> 7.8 -> 6.6 - Transthoracic echocardiogram = "1. normal left ventricular ejection fraction greater than 60% 2. normal wall motion 3. mild tricuspid regurgitation 4. grade I diastolic dysfunction 5. mild concentric left ventricular hypertrophy" - Chest x-ray = "no acute abnormalities displayed" - Management plan: - Consult Cardiology - recommendations appreciated - Continue home aspirin + lisinopril - If CAD confirmed, plan to start beta-anna and statin tolerated # Hypertension - Continue home amlodipine - Switch home lisinopril-hydrochlorothiazide to lisinopril only due to hyponatremia # Hypothyroidism - TSH 8.14, Free T4 1.25 - Continue home levothyroxine Isra Mead M.D.
--- NOTE | 2022-11-20 12:08 | ECHO ---
HEIGHT: 5 ft 1 in WEIGHT: 206 lb 0 oz DATE OF STUDY: 11/20/[address]: Sony Chambers 2-DIMENSIONAL: YES M.MODE: YES DOPPLER: YES COLOR FLOW: YES TDS: PORTABLE: YES DEFINITY: BUBBLE STUDY: DIAGNOSIS: CHEST PAIN CARDIAC HISTORY: CATHERIZATION: SURGERY: PROSTHETIC VALVE: PACEMAKER: MEASUREMENTS (cm) DIASTOLIC (NORMALS) SYSTOLIC (NORMALS) IVSd 0.9 (0.6-1.2) LA Diam 3.4 (1.9-4.0) LVEF 72% LVIDd 4.4 (3.5-5.7) LVIDs 2.6 (2.0-3.5) %FS 41% LVPWd 1.1 (0.6-1.2) Ao Diam 2.7 (2.0-3.7) 2 DIMENSIONAL ASSESSMENT: RIGHT ATRIUM: NORMAL LEFT ATRIUM: NORMAL RIGHT VENTRICLE: NORMAL LEFT VENTRICLE: NORMAL TRICUSPID VALVE: MILD TRICUSPID REGURGITATION MITRAL VALVE: NORMAL PULMONIC VALVE: NORMAL AORTIC VALVE: NORMAL PERICARDIAL EFFUSION: NONE AORTIC ROOT: NORMAL LEFT VENTRICULAR WALL MOTION: NORMAL DOPPLER/COLOR FLOW: SEE BELOW COMMENTS: 1. NORMAL LEFT VENTRICULAR EJECTION FRACTION GREATER THAN 60% 2. NORMAL WALL MOTION 3. MILD TRICUSPID REGURGITATION 4. GRADE I DIASTOLIC DYSFUNCTION 5. MILD CONCENTRIC LEFT VENTRICULAR HYPERTROPHY TECHNOLOGIST: JEANNE QUEEN
[2022-11-20 12:42] LABS: Potassium 3.8 mEq/L (3.5-5.1)
[2022-11-20 19:10] LABS: Potassium 4.5 mEq/L (3.5-5.1)
[2022-11-20] MEDS ORDERED: hydrOXYzine HCL 25 MG TAB PO PRN (19:13)
[2022-11-20] MEDS ORDERED: MELATONIN 5 MG TABLET PO PRN (19:14)
--- NOTE | 2022-11-20 19:55 | CON ---
Date of Consultation: 11/20/2022 Reason For Consultation: Chest pain. History Of Present Illness: 72-year-old female, history of hypertension, hyperlipidemia, and hypothy roidism, presented with chest pain, substernal on and off for the past 4 days, not related to exertio n, radiates to her back. Since hospitalization, she has been chest pain free. No cough or shortness of breath. Past Medical History: As outlined above in the HPI. Medications: Refer to reconciliation sheet for detailed list. Allergies: NO KNOWN DRUG ALLERGIES. Family History: No premature coronary artery disease or cancer. Social History: Does not smoke or drink. Does not use any drugs. Review of Systems: All systems were reviewed, they were negative except what was mentioned in HPI. Physical Examination: Vital Signs: Reviewed. Head and Neck: Pupils are equal, reactive to light. Intact eye movements. No JVD. No cervical lym phadenopathy. Neck is supple. Thyroid is not enlarged. Lungs: Clear to auscultation bilaterally. No rhonchi, wheezing, or crackles. No accessory muscle u se. Heart: Regular rate and rhythm. No extra sounds. Abdomen: Soft, nontender. Bowel sounds positive. No organomegaly. No masses or hernia. No rigidi ty or rebound. Extremities: No edema, clubbing, or cyanosis. Intact pulses. Skin: No rash. No nodule. Neurologic: Alert, awake, oriented x3. No acute focal deficits appreciated. Lymph Nodes: No cervical or axillary lymphadenopathy. Investigations: Labs were reviewed. Cardiac enzymes are negative. Assessment And Recommendations: 1.Chest pain. It is atypical with negative cardiac enzymes and plan for outpatient stress test. He r echo showed normal ejection fraction. 2.Severe hyponatremia. Nephrology is on board to further evaluate this issue. I am not sure she wa s taking any diuretics at home that could be the cause of this. 3.Hypertension. Blood pressure is controlled. Continue current therapy. SR/MODL Voice ID: [id number] Report ID: [id number]
[2022-11-21] MEDS ORDERED: LEVOTHYROXINE SOD 0.088 MG TAB PO SCH (06:30)
[2022-11-21 06:39] LABS: Magnesium 2.6 mg/dL (1.6-2.4); Phosphorus 3.3 mg/dL (2.5-4.9); Potassium 4.4 mEq/L (3.5-5.1)
[2022-11-21] MEDS ORDERED: AMLODIPINE 10 MG TAB PO SCH (09:00)
[2022-11-21] MEDS: lisinopriL 10 MG TAB PO SCH (10:47)
[2022-11-21] MEDS: ENOXAPARIN 40 MG/0.4 ML SQ SCH (10:48)
[2022-11-21] MEDS: ASPIRIN 81 MG CHEWABLE TABLET PO SCH (10:48)
--- NOTE | 2022-11-21 11:48 | P.PN ---
(S) Pt seen sitting on the side of the bed, no acute complaints, no N/V/D (O) Vitals reviewed in the EMR General: In no apparent distress, Oriented x3, Cooperative HEENT: Atraumatic Neck: Supple Respiratory: Clear to auscultation bilaterally, Normal air movement Cardiovascular: No edema, Regular rate/rhythm Gastrointestinal: Soft and benign, Non-distended Musculoskeletal: No clubbing, No contractures Integumentary: No rashes Neurological: Normal speech, awake, alert EXAM DESCRIPTION: [facility] Single View11/19/2022 12:40 pm CLINICAL HISTORY: Chest pain COMPARISON: none FINDINGS: The lungs appear clear of acute infiltrate. The heart is normal size IMPRESSION: No acute abnormalities displayed Conclusions/Impression: Acute hyponatremia in the setting of medications such as thiazide diuretic and NSAIDs/TAVARES-2 inhibitor -Na level improved on isotonic IVF. Ok to discharge off offending meds and will f/u in clinic Hypokalemia -Resolved HTN, underlying -Cont ACEi without thiazide diuretic, monitor BP Crispin Sandy MD, JACQUE
--- NOTE | 2022-11-21 13:03 | P.DS ---
Admission Date: 11/20/22 Discharge Date: 11/21/22 Disposition: ROUTINE DISCHARGE Discharge Condition: GOOD Reason for Admission: Chest pain Consultations: 1. Nephrology 2. Cardiology Hospital Course: DIAGNOSES: # Hypovolemic Hyponatremia secondary to Hydrochlorothiazide # Hypokalemia - improved # Chest Pain - non-exertional # Hypertension # Hypothyroidism HOSPITAL COURSE: Ms. Deya Thomas is a pleasant 72 year old female with a past medical history significant for hypertension and hypothyroidism who was admitted to the [facility] on 11/19/2022 for chest pain. She was admitted to the Medicine service. Upon further evaluation, she was found to have a sodium of 116. Nephrology was consulted and she was evaluated by Dr. Ron. It was felt that her hyponatremia was secondary to hydrochlorothiazide use. Her hydrochlorothiazide was held and she was treated with gentle hydration. Over the course of her hospitalization, her symptoms as well as her sodium levels improved significantly. Nephrology has cleared her for discharge with outpatient follow-up. In regards to her chest pain, her EKG was without STEMI criteria. Her chest x- ray revealed, "no acute abnormalities displayed." Her serial troponin trend was 5.7 -> 7.8 -> 6.6. Her transthoracic echocardiogram revealed, "1. normal left ventricular ejection fraction greater than 60% 2. normal wall motion 3. mild tricuspid regurgitation 4. grade I diastolic dysfunction 5. mild concentric left ventricular hypertrophy." Cardiology has cleared her for discharge with outpati ent follow-up. On 11/21/2022, she was seen on morning rounds and deemed medically stable for discharge. She was discharged with instructions to schedule follow-up appointments with her PCP (CIARA Metzger), with Cardiology (Dr. Luna), and with Nephrology (Dr. Ron). She was provided a prescription for lisinopril. Her lisinopril-hydrochlorothiazide was discontinued. She and her family members were given the opportunity to ask questions and reported no further questions. Furthermore, all questions were answered to the best of my ability. A copy of this discharge summary will be sent to the above providers to facilitate continuity of care. Today, I personally spent 25 minutes on her case, of which greater than 50% of the time was spent in patient education, counseling, and coordination of care as described above. - Physical Exam General: Alert, In no apparent distress, Oriented x3 HEENT: Atraumatic, Mucous membr. moist/pink, Sclerae nonicteric Respiratory: Clear to auscultation bilaterally, Normal air movement Cardiovascular: No edema, Regular rate/rhythm, No murmurs Gastrointestinal: Normal bowel sounds, Soft, Non-distended, No tenderness Integumentary: No rashes Neurological: Normal speech, Normal affect Vital Signs/Physical Exam: Temp Pulse Resp BP Pulse Ox 98.1 F 61 16 135/65 97 11/21/22 08:00 11/21/22 10:48 11/21/22 08:00 11/21/22 10:48 11/21/22 08:00 Laboratory Data at Discharge: WBC 10.40 thou/uL (4.3-10.9) 11/20/22 02:52 Hgb 13.9 g/dL (12.0-15.0) 11/20/22 02:52 Hct 40.3 % (36.0-45.0) 11/20/22 02:52 Plt Count 329 thou/uL (152-406) 11/20/22 02:52 Sodium 129 mEq/L (136-145) L 11/21/22 05:22 Potassium 4.4 mEq/L (3.5-5.1) 11/21/22 05:22 BUN 18 mg/dL (7-18) 11/21/22 05:22 Creatinine 0.72 mg/dL (0.55-1.02) 11/21/22 05:22 Glucose 105 mg/dL (74-106) 11/21/22 05:22 Phosphorus 3.3 mg/dL (2.5-4.9) 11/21/22 05:22 Magnesium 2.6 mg/dL (1.6-2.4) H 11/21/22 05:22 Triglycerides 96 mg/dL (<150) 11/19/22 20:57 Cholesterol 178 mg/dL (<200) 11/19/22 20:57 HDL Cholesterol 98 mg/dL (40-60) H 11/19/22 20:57 Cholesterol/HDL Ratio 1.82 11/19/22 20:57 Home Medications: Amlodipine Besylate [Norvasc] 1 tab PO DAILY 11/20/22 Hydroxyzine HCl [Atarax] 50 mg PO DAILY PRN 08/31/23 Levothyroxine [Synthroid*] 1 tab PO DAILY 11/20/22 Aspirin Chewable [Aspirin Chewable*] 81 mg PO DAILY tab.chew 11/21/22 lisinopriL [Prinivil*] 10 mg PO DAILY #30 tab 11/21/22 New Medications: lisinopriL [Prinivil*] 10 mg PO DAILY #30 tab Physician Discharge Instructions: 1. Please call and schedule a follow-up appointment with your PCP (CIARA Metzger) in 3-5 days 2. Please call and schedule a follow-up appointment with Nephrology (Dr. Ron) in 3-5 days - Please have your blood work repeated at this next appointment 3. Please call and schedule a follow-up appointment with Cardiology (Dr. Luan) in 5-7 days Medication changes: 1. Please take lisinopril 10 mg once per day 2. Please stop taking the lisinopril-hydrochlorothiazide combination pill You have been given a 1 month prescription for these medications. Please follow- up with your PCP for medication refills/adjustments Diet: AHA Activity: Ad katelyn Followup: Ivy Metzger FNP [OUTSIDE PHYSICIAN] - Victor Manuel Luna MD [ACTIVE - CAN ADMIT] - Kwadwo Ron DO [ACTIVE - CAN ADMIT] - Time spent managing pt's care (in minutes): 25
[2022-11-21 13:48] VITALS: BP 136/71; TEMP 97
[2022-11-21 14:59] VITALS: O2SAT 98
== END 2022-11-21 17:00 | disposition home or self-care (01) | DRG 641 ==
LOC: ER 12:06 → ERHOLD 16:27 → 4TH 19:48 → OBSVTOIN 11-20 12:55
PROVIDERS: ADMIT Internal Medicine; ATTEND Internal Medicine
DX: E87.1 Hypo-osmolality and hyponatremia (principal); I50.32 Chronic diastolic (congestive) heart failure; I13.0 Hypertensive heart and chronic kidney disease with heart failure and stage 1 through stage 4 chronic kidney disease, or unspecified chronic kidney disease; N18.2 Chronic kidney disease, stage 2 (mild); E87.6 Hypokalemia; M19.90 Unspecified osteoarthritis, unspecified site; E03.9 Hypothyroidism, unspecified; E86.1 Hypovolemia; I07.1 Rheumatic tricuspid insufficiency; E78.00 Pure hypercholesterolemia, unspecified; T50.2X5A Adverse effect of carbonic-anhydrase inhibitors, benzothiadiazides and other diuretics, initial encounter; Z79.82 Long term (current) use of aspirin; Z79.890 Hormone replacement therapy; Z79.899 Other long term (current) drug therapy
CPT/HCPCS: 36415; 71045; 80048; 80061; 81001; 83036; 83735; 83930; 84100; 84300; 84439; 84443; 84484; 85025; 93005; 93306; 99285; G0378; J1650

== ENCOUNTER 2023-02-05 06:30 | Day surgery (SDC) | payer OTHER ==
[2023-02-02 16:48] LABS: Absolute Lymphocytes (CBC) 1.7 K/uL (0.7-4.9); Hematocrit 42.9 % (36.0-45.0); Lymphocytes % 19.7 % (15.3-44.8); MCV 87.8 fL (80-100); MPV 9.2 fL (7.6-11.3); Platelets 313 thou/uL (152-406); Protime INR 1.1; RBC Red Blood Cell Count 4.88 M/uL (3.86-4.86)
[2023-02-02 16:58] LABS: Potassium 3.7 mEq/L (3.5-5.1)
--- NOTE | 2023-02-04 17:28 | EKG ---
Test Date: 2023-02-02 Test Time: 17:11:51 Magazine Grinder Loader: [place]STA MEASUREMENT RESULTS: Intervals: Rate: 55 OK: 156 QRSD: 76 QT: 458 QTc: 438 [place]: P: 47 OK: 156 QRS: -6 T: 16 INTERPRETIVE STATEMENTS: Sinus bradycardia Otherwise normal ECG Compared to ECG 11/19/2022 12:28:52 Sinus rhythm no longer present Electronically Signed On 02-04-23 17:22:56 PIGMENT WEIGHER by Victor Manuel Luna
[2023-02-05] MEDS ORDERED: HEPA 1000U/500MLS 2,000 UNIT/1,000 ML BAG IV ONE (06:52)
[2023-02-05] MEDS ORDERED: CLOPIDOGREL 75 MG TABLET ONE (06:53)
[2023-02-05] MEDS ORDERED: MIDAZOLAM HCL 2 MG/2 ML INJ ONE (06:53)
[2023-02-05] MEDS ORDERED: HEPARIN 10,000 UNIT/10 ML VIAL IV ONE (06:54)
[2023-02-05] MEDS ORDERED: NITROGLYCERIN 100 MCG/ML SYR (for cath lab use only) IV ONE (06:54)
[2023-02-05] MEDS ORDERED: NA CHLORIDE 0.9% 500 ML ONE (06:57)
[2023-02-05 09:30] VITALS: O2SAT 100
[2023-02-05 10:51] VITALS: BP 127/66
--- NOTE | 2023-02-05 12:47 | OP ---
Date of Procedure: 02/05/2023 Surgeon: CHRISTIANNE WINSLOW Procedure Performed: 1.Coronary angiogram, selective. 2.Left heart catheterization. Indication: Chest pain with abnormal stress test. Access: Right radial artery 6-Emirati closed with TR band. Complications: None. Bleeding: Less than 20 mL. Anesthesia: Total sedation time was 50 minutes. Description Of Procedure: After risks, benefits, alternatives were explained, patient agreed to proc edure and signed informed consent. Patient was brought into cardiac catheterization laboratory, prep ped and draped in usual sterile fashion. Then, I accessed right radial artery using pediatric microp uncture kit, placed 6-Emirati Slender sheath, took 5-Emirati [place] 4.0 catheter over a J-wire into the aortic root, engaged left main and took standard views and then in the RCA and took standard views an d then the catheter was pushed over the wire into the LV, measured the LVEDP. Pullback did not recor d any gradient, removed the catheter and the sheath, placed TR band with good hemostasis. Findings: 1.Left main; large and normal. 2.LAD, moderate-sized vessel, normal. Normal diagonal branches. 3.Left circumflex, moderate-sized vessel, it is normal. 4.RCA; very large and dominant and normal. 5.Normal LVEDP at 5 mmHg. Conclusion: 1.Normal coronary arteries and falsely positive stress test. 2.Normal LVEDP. Recommendation: Medical management. SR/MODL Voice ID: [id number] Report ID: [id number]
== END 2023-02-05 10:15 | disposition home or self-care (01) ==
LOC: CCL 06:30
PROVIDERS: ATTEND Internal Medicine
DX: R94.39 Abnormal result of other cardiovascular function study (principal); R07.9 Chest pain, unspecified; I51.7 Cardiomegaly; I10 Essential (primary) hypertension; E78.2 Mixed hyperlipidemia; Z79.899 Other long term (current) drug therapy
CPT/HCPCS: 93005; 85025; 80048; 36415; 83721; 85610; 85730; 93458; 76937; C1893; Q9966; J2250; J7040